=== PATIENT | male | born 1955 | race Caucasian/White ===

== ENCOUNTER 2020-03-03 02:07 | Emergency (ER) | payer OTHER ==
[2020-03-03] MEDS ORDERED: OMNIPAQUE 350 MG/ML, 100ML BOTTLE ONE (05:10)
[2020-03-03 05:16] LABS: ALANINE AMINOTRANSFERASE 37 U/L (12-78); ALKALINE PHOSPHATASE 58 U/L (45-117); ANION GAP 8 mmol/L (5-15); BILIRUBIN,TOTAL 0.5 mg/dL (0.2-1.0); CALCIUM 8.9 mg/dL (8.5-10.1); CHLORIDE 110 mmol/L (98-107); CREATININE 1.47 mg/dL (0.7-1.3); TOTAL PROTEIN 7.2 g/dL (6.4-8.2)
[2020-03-03 05:17] LABS: ALBUMIN 4.2 g/dL (3.4-5.0)
--- NOTE | 2020-03-03 05:21 | NUR ---
RECEIVED REPORT FROM CARISSA GREWAL
[2020-03-03 05:43] LABS: MICROSCOPIC NOT IND
[2020-03-03 06:37] LABS: MEAN CORPUSCULAR HEMOGLOBIN 31.2 pg (27.5-34.5); MEAN PLATELET VOLUME 9.8 fL (7.4-10.4); PLATELET COUNT 244 x10^3/uL (130-400); RED CELL DISTRIBUTION WIDTH 13.7 % (9.4-14.8)
[2020-03-03 06:38] LABS: BASOPHILS # (AUTO) 0.01 x10^3/uL (0-0.1); BASOPHILS % (AUTO) 0 % (0-1); EOSINOPHILS # (AUTO) 0.13 x10^3/uL (0-0.4); EOSINOPHILS % (AUTO) 1 % (1-7); LYMPHOCYTES # (AUTO) 1.48 x10^3/uL (1-3.4); LYMPHOCYTES % (AUTO) 13 % (22-44); MONOCYTES # (AUTO) 0.43 x10^3/uL (0.2-0.8); MONOCYTES % (AUTO) 4 % (2-9); NEUTROPHILS # (AUTO) 9.25 x10^3/uL (1.8-6.8); NEUTROPHILS % (AUTO) 82 % (42-75)
[2020-03-03 06:57] LABS: MD SCAN
--- NOTE | 2020-03-03 07:07 | NUR ---
Note chadone in EDM - 03/03/20 at 0723 by JO Handoff report received from CARMINA Palma. Pt in obvious abdominal pain, able to stand with assistance to urinate. BP WNL, HR 120-150's. Amio bolus nearly complete, Kcentra infusing. Attempt made for floor report, waiting for call back.
--- NOTE | 2020-03-03 07:48 | NUR ---
Handoff report received from CARMINA Palma. Pt here for abdomina pain, waiting now for decision regarding surgery. P resting, no complaints at this time. VS updated, will monitor.
[2020-03-03 07:49] VITALS: BP 165/96
[2020-03-03] MEDS ORDERED: SODIUM CHLORIDE 0.9% 1,000ML IVBOLUS ONE (08:00)
== END 2020-03-03 08:18 | disposition home or self-care (01) ==
LOC: ED 02:07
DX: K80.20 Calculus of gallbladder without cholecystitis without obstruction (principal); R10.9 Unspecified abdominal pain; R10.30 Lower abdominal pain, unspecified; R11.2 Nausea with vomiting, unspecified
CPT/HCPCS: 36415; 74177; 76700; 80053; 81003; 83690; 85025; 99285; Q9967